=== PATIENT | female | born 1985 | race Caucasian/White ===

== ENCOUNTER → 2018-01-13 | Outpatient (CLI) | payer OTHER | LOC: FIMAGING 11:00 | PROVIDERS: ATTEND Orthopaedic Surgery Foot and Ankle Surgery | DX: M79.671 Pain in right foot (principal); S93.324D Dislocation of tarsometatarsal joint of right foot, subsequent encounter; S92.321D Displaced fracture of second metatarsal bone, right foot, subsequent encounter for fracture with routine healing; S92.331D Displaced fracture of third metatarsal bone, right foot, subsequent encounter for fracture with routine healing; Z98.890 Other specified postprocedural states ==

== ENCOUNTER 2018-07-23 11:38 | Day surgery (SDC) | payer OTHER ==
--- NOTE | 2018-07-23 09:22 | GHP ---
DATE OF ADMISSION: 07/23/2018 CHIEF COMPLAINT: Right foot. HISTORY OF PRESENT ILLNESS: Patient is a 33-year-old who had previously undergone ORIF of a midfoot fracture-dislocation. The patient was having persistent pain in her foot. PAST SURGICAL HISTORY: Positive for previous foot surgery. PAST MEDICAL HISTORY: Positive for asthma. SOCIAL HISTORY: Negative for tobacco use. MEDICATIONS: Depo-Provera. ALLERGIES: She lists no drug allergies. EXAMINATION: GENERAL: She is alert and oriented x3 and, overall, appearing in good health. HEENT: Head is normocephalic. Pupils equal, round, reactive to light. Extraocular eye movements intact. NECK: Supple. No JVD or lymphadenopathy. CHEST: Clear to auscultation. HEART: Regular rate and rhythm. No murmurs or gallops. ABDOMEN: Soft, nontender, nondistended. No organomegaly. GENITAL, RECTAL, AND BREAST: Exam was deferred. EXTREMITIES: Reveal tenderness about the dorsal aspect of h er mid foot. ASSESSMENT: 1. Symptomatic retained hardware, right midfoot. 2. Right midfoot arthrosis. 3. Right gastrocnemius contracture. PLAN: The patient is scheduled for hardware removal and gastrocnemius recession. It was recommended that arthrodesis of her arthritic midfoot joints be pursued, but the patient declined to have this d one despite repeated warnings that it is likely that she will continue to have midfoot pain, likely n ecessitating additional surgery in the future. /[id number]/MODL
[2018-07-23] MEDS ORDERED: LR 1,000 ML IV ONE (12:02)
[2018-07-23] MEDS ORDERED: BUPIVACAINE 0.5% 30 ML SDV ONE (12:06)
[2018-07-23 12:17] VITALS: BP 164/104
== END 2018-07-23 12:32 | disposition home or self-care (01) ==
LOC: FSGY 11:38
PROVIDERS: ATTEND Orthopaedic Surgery Foot and Ankle Surgery
DX: Z53.09 Procedure and treatment not carried out because of other contraindication (principal); T84.84XA Pain due to internal orthopedic prosthetic devices, implants and grafts, initial encounter; M25.571 Pain in right ankle and joints of right foot; M19.071 Primary osteoarthritis, right ankle and foot; J45.909 Unspecified asthma, uncomplicated; M62.461 Contracture of muscle, right lower leg

== ENCOUNTER 2018-07-27 09:13 | Day surgery (SDC) | payer OTHER ==
[2018-07-27] MEDS ORDERED: MIDAZOLAM 2 MG/2 ML VIAL IVP ONE (09:37)
--- NOTE | 2018-07-27 09:37 | PDANEPAE ---
ANE History of Present Illness gastroc lengthening/RSHWR ANE Past Medical History - Cardiovascular History Hx Hypertension: No Hx Arrhythmias: No Hx Chest Pain: No Hx Coronary Artery / Peripheral Vascular Disease: No Hx CHF / Valvular Disease: No Hx Palpitations: No - Pulmonary History Hx COPD: No Hx Asthma/Reactive Airway Disease: No Hx Recent Upper Respiratory Infection: No Hx Oxygen in Use at Home: No Hx Sleep Apnea: No Sleep Apnea Screening Result - Last Documented: Negative - Neurologic History Hx Cerebrovascular Accident: No Hx Seizures: No Hx Dementia: No - Endocrine History Hx Diabetes: No - Renal History Hx Renal Disorders: No - Liver History Hx Hepatic Disorders: No - Neurological & Psychiatric Hx Hx Neurological and Psychiatric Disorders: No - Cancer History Hx Cancer: No - Congenital Disorder History Hx Congenital Disorders: No - GI History Hx Gastrointestinal Disorders: No - Other Health History Other Health History: has hemochromatosis - gets regular phlebotomies and is checked - Chronic Pain History Chronic Pain: No - Surgical History Prior Surgeries: ORIF right foot, 03/2016. 2nd foot surgery to remove a portion of hardware, 07/2016 ANE Review of Systems Review of Systems: - Exercise capacity METS (RN): 4 METS ANE Patient History - Allergies Allergies/Adverse Reactions: No Known Allergies Allergy (Verified 07/21/18 15:21) - Home Medications Home Medications: Ibuprofen PRN 07/21/18 [Last Taken 07/18/18] medroxyPROGESTERone [Depo-Provera 150 mg/ml (*)] 07/21/18 [Last Taken 04/25/18] - NPO status NPO Status: no food or drink >8 hours - Anes Hx Anes Hx: no prior problems - Smoking Hx Smoking Status: Never smoked - Alcohol Use Alcohol Use: Occasionally - Family Anes Hx Family Anes Hx: none Family Hx Anesthesia Complications: none ANE Labs/Vital Signs - Vital Signs Vital Signs: reviewed preoperatively; see RN documention for details Height: 180.34 cm Weight: 142.882 kg ANE Physical Exam - Airway Neck exam: FROM Mallampati Score: Class 2 Mouth exam: normal dental/mouth exam - Pulmonary Pulmonary: no respiratory distress, clear to auscultation - Cardiovascular Cardiovascular: regular rate and rhythym, no murmur, rub, or gallop - ASA Status ASA Status: II ANE Anesthesia Plan Anesthesia Plan: GA w LMA
[2018-07-27] MEDS ORDERED: PROPOFOL 200 MG/20 ML VIAL ONE (09:41)
[2018-07-27] MEDS ORDERED: fentaNYL 100 MCG/2 ML INJ ONE ×4 (09:41→12:07)
[2018-07-27] MEDS ORDERED: BUPIVACAINE 0.5% 30 ML SDV ONE (09:45)
[2018-07-27] MEDS ORDERED: LR 1,000 ML IV ONE (10:00)
[2018-07-27] MEDS ORDERED: ceFAZolin 2 GM/DEXTROSE 100 ML IV ONE (10:03)
--- NOTE | 2018-07-27 10:04 | PDHPUP ---
History & Physical Update H&P update statement: This history and physical update is based on an assessment of the patient which was completed after admission or registration (within 24 hours), but prior to the surgery/procedure. H&P update: H&P reviewed & patient examined
--- NOTE | 2018-07-27 10:05 | POSTOPPROG ---
Post Op Note Date of Operation: 07/27/18 Surgeon: Steve Donald Anesthesia: GET(General Endotracheal) Pre-op Diagnosis: Retained hardware right foot. gastrocnemius contracture Post-op Diagnosis: same Procedure: HWR R foot, gastroc recession Inf/Abcess present in the surg proc area at time of surgery?: No EBL: Minimal
[2018-07-27] MEDS ORDERED: CEFAZOLIN 2 GM/DEXTROSE/100 ML BAG IV ONE (10:06)
[2018-07-27] MEDS ORDERED: PROMETHAZINE HCL 25 MG/ML INJ IVP PRN (11:47)
[2018-07-27] MEDS ORDERED: NALOXONE HCL 0.4 MG/ML INJ IVP PRN (11:47)
[2018-07-27] MEDS ORDERED: oxyCODONE IR 5 MG TAB PO PRN (11:47)
[2018-07-27] MEDS ORDERED: ACETAMINOPHEN 500 MG TAB PO PRN (11:47)
[2018-07-27] MEDS ORDERED: HYDROCODONE/APAP 5/325 TAB PO PRN (11:47)
[2018-07-27] MEDS ORDERED: ONDANSETRON 4 MG/2 ML VIAL IVP PRN (11:47)
--- NOTE | 2018-07-27 11:49 | POSTANESTH ---
Post Anesthetic Evaluation Cardiovascular Status: Normal, Stable, Similar to Pre-Op Cond Respiratory Status: Normal, Stable, Similar to Pre-op Cond. Level of Consciousness/Mental Status: Can Participate in Eval, Alert and Oriented Pain Control: Adequate, Prn Tx Ordered Nausea/Vomiting Control: Adequate, Prn Tx Ordered Complications Possibly Related to Anesthesia: None Noted
[2018-07-27] MEDS: fentaNYL 100 MCG/2 ML INJ IVP PRN ×4 (11:51→12:28)
[2018-07-27] MEDS ORDERED: oxyCODONE IR 5 MG TAB ONE (12:24)
[2018-07-27 13:29] VITALS: BP 122/84
[2018-07-27] MEDS ORDERED: ONDANSETRON 4 MG/2 ML VIAL ONE (13:50)
--- NOTE | 2018-07-28 06:03 | GOP ---
DATE OF OPERATION: 07/27/2018 SURGEON: Steve Donald MD ANESTHESIA: General. PREOPERATIVE DIAGNOSIS: 1. Symptomatic retained hardware, right foot. 2. Right gastrocnemius contracture. 3. Extensor digitorum communis tenosynovitis. POSTOPERATIVE DIAGNOSIS: 1. Symptomatic retained hardware, right foot. 2. Right gastrocnemius contracture. 3. Extensor digitorum communis tenosynovitis. PROCEDURE PERFORMED: 1. Hardware removal, right 1st metatarsal. 2. Hardware removal, right 2nd metatarsal. 3. Hardware removal, right 3rd metatarsal. 4. Extensor digitorum longus synovectomy. 5. Gastrocnemius recession. FINDINGS: ESTIMATED BLOOD LOSS: Minimal. INDICATIONS: The patient is a 33-year-old who had previously undergone open reduction, internal fixa tion of a Lisfranc disruption. The patient had clinical and radiographic evidence of favorable heali ng of her injury with anatomic alignment of the tarsometatarsal articulations. She was having contin ued pain. 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 It was felt that her pain was due to both the arthritis and her retained hardware. Based on her persistence of s ymptoms, she was interested in pursuing operative treatment. From an operative standpoint, hardware removal and midfoot arthrodesis were proposed. The patient elected to pursue hardware removal as an isolated option without the arthrodesis in hopes of improving her symptoms. She acknowledged she und erstood the potential risks including but not limited to bleeding, infection, neurovascular damage, l oss of limb or limb function, inability to remove hardware, pain or functional limitations despite op erative treatment and anesthetic risks. She acknowledged the fact that with her arthritis, there was concern over continued pain that might require a subsequent arthrodesis if not performed at this [facility]. She gave consent for the operative procedure. DESCRIPTION OF PROCEDURE: The patient was brought in the operating after IV antibiotics were adminis tered. She was placed in a supine position where general anesthetic was administered. A high calf t ourniquet was applied, and the right lower leg was prepped and draped in standard sterile fashion. A fter marking the incision and Patrick wrap exsanguination, the tourniquet was inflated to 250. Attention was initially directed toward the gastroc recession. A longitudinal incision was made along the med ial aspect of the lower leg at the mid level of the gastroc. Skin and subcutaneous tissue were sharp ly incised. Sharp dissection was carried through the superficial posterior compartment fascia in martina e with the skin incision. The gastrocnemius/soleus interval was bluntly dissected. Utilizing a spec ulum for retraction, the anterior tendon of the gastroc was transversely incised. Favorable dorsifle xion was achieved. The subcutaneous tissue was closed with 3-0 Vicryl suture in an interrupted fashi on. Skin was closed with 3-0 nylon interrupted sutures. Attention was directed toward the midfoot. The previous dorsal medial incision was initially used. Skin and subcutaneous tissue were sharply incised. Dissection was carried adjacent to the extensor h allucis longus tendon down to the 1st tarsometatarsal region and 1st metatarsal. The screw in the 1s t metatarsal was identified, freed of its fibrous ingrowth and removed without difficulty. Dissectio n was then carried lateral to the neurovascular bundle through the same incision, exposing the 2nd me tatarsal. The 2nd extensor tendon was freed of significant scar tissue overlying it and the tendon w as manipulated to gain improved motion. The plate and screws overlying the 2nd metatarsal were ident ified, freed of their fibrous overgrowth and removed. The proximal screw head snapped, leaving the s haft of the screw imbedded in the bone. This was not felt to be a cause of symptoms and was therefor e left in place, as removing this portion of the screw would cause more harm than good. The subcutan eous tissue was closed with 3-0 Vicryl suture, and the skin was closed with 4-0 nylon interrupted sut ures. The dorsal lateral incision was then utilized for exposure of the 3rd metatarsal. The skin and subcu taneous tissue were sharply incised. The superficial peroneal nerve was identified and carefully ret racted out of harm's way. The extensor tendon on the 3rd toe was freed of scar tissue surrounding it , enabling it to move more freely. The dorsal aspect of the 3rd metatarsal was identified. Plate an d screws were removed of their fibrous overgrowth and removed. Subcutaneous tissue was closed with 3 -0 Vicryl suture in interrupted fashion. Skin closed with 4-0 nylon interrupted sutures. 0.5% Farooq ine without epinephrine was injected in the wound sites. The wounds were dressed with sterile [employer], 4 x 4, Kerlix and an Patrick wrap. The patient tolerated the procedure well and was taken to the ines very room, extubated in stable condition postoperatively. All sponge, needle, and instrument counts were reported as being correct. DRAINS: None. COMPLICATIONS: None. PLAN: The patient was placed in a fracture boot and will be discharged home weightbearing as tolerat ed. /[id number]/MODL
== END 2018-07-27 14:31 | disposition home or self-care (01) ==
LOC: FSGY 09:13
PROVIDERS: ATTEND Orthopaedic Surgery Foot and Ankle Surgery
PROC: 0QPN04Z Removal of Internal Fixation Device from Right Metatarsal, Open Approach (ICD-10-PCS; principal; 2018-07-27 10:30)
PROC: 0LSN0ZZ Reposition Right Lower Leg Tendon, Open Approach (ICD-10-PCS; principal; 2018-07-27 10:30)
DX: T84.84XA Pain due to internal orthopedic prosthetic devices, implants and grafts, initial encounter (principal); M62.461 Contracture of muscle, right lower leg; M65.871 Other synovitis and tenosynovitis, right ankle and foot; E83.119 Hemochromatosis, unspecified
CPT/HCPCS: J0690; J2250; J2405; J2704; J3010